=== PATIENT | male | born 1995 ===

== ENCOUNTER → 2020-07-30 | Outpatient (CLI) | payer OTHER ==
[2020-07-30 22:52] LABS: Basophils # (A) 0.04 X 10*3/uL (0.00-0.10); Basophils % (A) 0.5 %; Eosinophils # (A) 0.05 X 10*3/uL (0.04-0.35); Eosinophils % (A) 0.7 %; HCT 47.5 % (39.6-50.0); Lymphocytes # (A) 1.85 X 10*3/uL (0.90-5.00); Lymphocytes % (A) 25.3 %; MCH 30.1 pg (27.0-32.0); MCHC 33.7 g/dL (32.0-37.0); MCV 89.5 fL (80.0-97.0); Mean Platelet Volume 10.6 fL (9.5-12.2); Monocytes # (A) 0.41 X 10*3/uL (0.20-1.00); Monocytes % (A) 5.6 %; Neutrophils # (A) 4.89 X 10*3/uL (1.80-7.70); Neutrophils % (A) 66.9 %; Platelet Count 268 X 10*3/uL (140-440); RBC 5.31 X 10*6/uL (4.40-5.60); RDW 11.7 % (11.5-14.5); WBC 7.31 X 10*3/uL (4.50-10.00)
[2020-07-31 01:48] LABS: African American GFR (CKD) 106.8 (60.0-200.0); Albumin 4.9 g/dL (3.80-4.90); Albumin/Globulin Ratio 2.04 (1.60-3.17); Anion Gap 9.8 mmol/L (4.00-12.00); BUN/Creat Ratio 18.18 Ratio (12.00-20.00); Calcium 9.4 mg/dL (8.7-10.3); Carbon Dioxide 25.2 mmol/L (21.6-31.8); Globulin 2.4 g/dL (1.6-3.3); Non-African American GFR(CKD) 92.2 (60.0-200.0); Potassium 4.4 mmol/L (3.5-5.5); Total Bilirubin 0.7 mg/dL (0.3-1.2); Total Protein 7.3 g/dL (6.2-8.2)
== END | disposition home or self-care (01) ==
LOC: LABWHC1 13:17
PROVIDERS: ATTEND Nurse Practitioner Acute Care
DX: E55.9 Vitamin D deficiency, unspecified (principal); R56.9 Unspecified convulsions; Z51.81 Encounter for therapeutic drug level monitoring
CPT/HCPCS: 36415; 80053; 82306; 82607; 84207; 85025

== ENCOUNTER 2021-10-16 14:20 | Emergency (ER) | payer OTHER ==
[2021-10-16 14:23] VITALS: RESP 20; TEMP 98.3
--- NOTE | 2021-10-16 16:19 | XR ---
Left knee, left femur and left ankle HISTORY: Pain 3 views the left knee, frontal and lateral views the left femur on 4 images, 3 views left ankle Bone mineralization, joint spaces and alignment are maintained within the left ankle, left femur, lef t knee IMPRESSION: Normal left femur, left knee, left ankle
--- NOTE | 2021-10-16 16:34 | ED ---
Extremity Problem HPI - General Chief complaint: Extremity Problem,Nontraumatic Stated complaint: L leg pain Time Seen by Provider: 10/16/21 15:05 Source: patient Mode of arrival: ambulatory Limitations: no limitations - History of Present Illness Initial comments: Patient is a 25-year-old male presenting with chief complaint of left leg pain. Patient states that the pain began approximately a week ago after a session at the gym. Pain began localized around the knee. Patient states that the pain moves around between the lower legs, the upper leg, and the general knee area. Patient states that the pain is worse upon waking up in the morning, and after some activity and movement it decreases. Patient states that he drinks a liter of water a day and has been taking Tylenol for pain control. He states he has full sensation and range of motion. He denies history of diabetes, right leg pain, back pain, saddle paresthesia loss of bowel or bladder control, numbness, tingling, radiation of pain down the leg, acute trauma or injury. - Related Data Home Medications Medication Instructions Recorded Confirmed levETIRAcetam [Keppra] 750 mg PO BID 10/16/21 10/16/21 Previous Rx's Medication Instructions Recorded Cyclobenzaprine [Flexeril] 10 mg PO TID PRN #20 tab 10/16/21 Allergies Allergy/AdvReac Type Severity Reaction Status Date / Time No Known Allergies Allergy Verified 10/16/21 16:40 Review of Systems ROS Statement: Those systems with pertinent positive or pertinent negative responses have been documented in the HPI. ROS Other: All systems not noted in ROS Statement are negative. Past Medical History Past Medical History: Seizure Disorder History of Any Multi-Drug Resistant Organisms: None Reported Past Surgical History: No Surgical Hx Reported Past Psychological History: No Psychological Hx Reported Smoking Status: Never smoker Past Alcohol Use History: None Reported Past Drug Use History: None Reported - Past Family History Father History Unknown: Yes Family Medical History: Cancer, Hypertension General Exam Limitations: no limitations General appearance: alert, in no apparent distress Head exam: Present: atraumatic, normocephalic, normal inspection Eye exam: Present: normal appearance, EOMI. Absent: scleral icterus Neck exam: Present: normal inspection Extremities exam: Present: normal inspection, full ROM, normal capillary refill, other (Tibial and pedal pulses palpated, skin is normal color, warm to touch, and sensation is intact). Absent: tenderness, pedal edema, joint swelling, calf tenderness Neurological exam: Present: alert, oriented X3, CN II-XII intact Psychiatric exam: Present: normal affect, normal mood Skin exam: Present: warm, dry, intact, normal color. Absent: rash Course Vital Signs 10/16/21 14:21 Temperature 98.3 F Pulse Rate 93 Respiratory 20 Rate Blood Pressure 141/85 O2 Sat by Pulse 96 Oximetry Medical Decision Making - Medical Decision Making Patient is a 25-year-old male presenting with chief complaint of left leg pain. Patient states that the pain travels and is never localized only one area. It is worse in the morning and gets better with activity. Patient recently started more active lifestyle and going to the gym. On exam there is full range of motion and sensation is intact. Pulses are palpated. The skin is warm, dry, normal color. There is no tenderness on palpation anywhere along the left leg. X-rays are negative for fracture or dislocation. Educated the patient that this is likely due to cramping or spasming. I provided him with a prescription for cyclobenzaprine 10 mg up to 3 times a day as needed. I informed him that this medication may make him drowsy, and to not take before driving or operating heavy machinery. I encouraged him to continue with his new active lifestyle and stay hydrated throughout the day. Follow-up with PCP this week. Report back to ER with any worsening symptoms. Educated the patient on return parameters and answered all questions. He conveyed verbal understanding and agreed to the plan. - Radiology Data Radiology results: report reviewed Interpreted by me: X-ray of the knee, femur, and ankle: Normal left femur, left knee, left ankle Disposition Clinical Impression: Leg cramps Disposition: HOME SELF-CARE Condition: Good Instructions (If sedation given, give patient instructions): Leg Cramps (ED), Leg Pain (ED) Additional Instructions: Follow-up with primary care provider this week. Take medication as prescribed. Continue [place] and active lifestyle and stay well-hydrated throughout the day. Report back to ER if any worsening symptoms, including but not limited to loss of range of motion, bluish discoloration of the extremity, foot cold to the touch, pain with activity. Prescriptions: Cyclobenzaprine [Flexeril] 10 mg PO TID PRN #20 tab PRN Reason: Muscle Spasm Is patient prescribed a controlled substance at d/c from ED?: No Referrals: None,Stated [Primary Care Provider] - 10/23/21 Time of Disposition: 16:34
[2021-10-16 17:35] VITALS: BP 132/82; PULSE 88
== END 2021-10-16 17:29 | disposition home or self-care (01) ==
LOC: EC 14:20
DX: R25.2 Cramp and spasm (principal); G43.909 Migraine, unspecified, not intractable, without status migrainosus
CPT/HCPCS: 99283

== ENCOUNTER 2022-07-19 12:17 | Emergency (ER) | payer OTHER ==
--- NOTE | 2022-07-19 13:40 | XR ---
EXAMINATION TYPE: XR lumbosacral spine min 4V DATE OF EXAM: 07/19/2022 1:34 PM INDICATION: Patient age:Male; 26 years old; Reason for study: pain; PHH. COMPARISON: None TECHNIQUE: AP, lateral, bilateral oblique, and L5-S1 Spot lateral projections performed. FINDINGS: There are 5 lumbar type vertebral bodies identified. No evidence of any acute osseous patho logy. No evidence of loss of vertebral body height is seen. No disc space narrowing identified. Ther e is normal alignment of the lumbar vertebral bodies. IMPRESSION: No acute process.
[2022-07-19] MEDS ORDERED: ACET/COD 300 MG/30 MG STARTER PACK 6 TAB BTL PO STA (13:58)
--- NOTE | 2022-07-19 13:58 | ED ---
Back Pain HPI - General Chief Complaint: Back Pain/Injury Stated Complaint: Left sciatic pain Time Seen by Provider: 07/19/22 12:57 Source: patient, RN notes reviewed Mode of arrival: ambulatory Limitations: no limitations - History of Present Illness Initial Comments: 26-year-old male presents emergency Department chief complaint of back pain, left leg pain. Patient states that he has dealt with some issues of his back for but states this has been present for 3 weeks. Patient states his pain, occasional numbness down his left leg. Patient denies any bowel, bladder incontinence or retention of saddle anesthesias. Patient states that it is worse with movement states it feels like it starts the base of his back and rates down his left leg in the posterior aspect. Patient offers no other associated complaints denies any weakness denies any difficulty and bleeding. - Related Data Home Medications Medication Instructions Recorded Confirmed levETIRAcetam [Keppra] 750 mg PO BID 10/16/21 10/16/21 Previous Rx's Medication Instructions Recorded Cyclobenzaprine [Flexeril] 10 mg PO TID PRN #20 tab 10/16/21 Cyclobenzaprine [Flexeril] 10 mg PO TID PRN #15 tab 07/19/22 Ibuprofen [Motrin] 600 mg PO Q8HR PRN #20 tab 07/19/22 predniSONE 50 mg PO DAILY #5 tab 07/19/22 Allergies Allergy/AdvReac Type Severity Reaction Status Date / Time No Known Allergies Allergy Verified 10/16/21 16:40 Review of Systems ROS Statement: Those systems with pertinent positive or pertinent negative responses have been documented in the HPI. ROS Other: All systems not noted in ROS Statement are negative. Past Medical History Past Medical History: Seizure Disorder History of Any Multi-Drug Resistant Organisms: None Reported Past Surgical History: No Surgical Hx Reported Past Psychological History: No Psychological Hx Reported Smoking Status: Never smoker Past Alcohol Use History: None Reported Past Drug Use History: None Reported - Past Family History Father History Unknown: Yes Family Medical History: Cancer, Hypertension General Exam Limitations: no limitations General appearance: alert, in no apparent distress Head exam: Present: atraumatic, normocephalic, normal inspection Eye exam: Present: normal appearance, PERRL, EOMI. Absent: scleral icterus, conjunctival injection, periorbital swelling ENT exam: Present: normal exam, normal oropharynx, mucous membranes moist Neck exam: Present: normal inspection, full ROM. Absent: tenderness, meningismus, lymphadenopathy Respiratory exam: Present: normal lung sounds bilaterally. Absent: respiratory distress, wheezes, rales, rhonchi, stridor Cardiovascular Exam: Present: regular rate, normal rhythm, normal heart sounds. Absent: systolic murmur, diastolic murmur, rubs, gallop, clicks GI/Abdominal exam: Present: soft, normal bowel sounds. Absent: distended, tenderness, guarding, rebound, rigid Extremities exam: Present: other (Pain with left straight leg raise, neurovascular intact no swelling no discoloration pulses are equal bilaterally) Back exam: Present: full ROM (Pain with range of motion), tenderness, paraspinal tenderness, vertebral tenderness (Lumbar) Neurological exam: Present: reflexes normal. Absent: motor sensory deficit Course Vital Signs 07/19/22 12:43 Temperature 98 F Pulse Rate 95 Respiratory 16 Rate Blood Pressure 170/90 O2 Sat by Pulse 96 Oximetry Medical Decision Making - Medical Decision Making Was pt. sent in by a medical professional or institution (Dr. PA, [employer] DESIGN AND INSTALLATION TECHNICIAN, urgent care, hospital, or residential...) When possible be specific @ -No Did you speak to anyone other than the patient for history (EMS, parent, family, police, friend...)? What history was obtained from this source @ -No Did you review nursing and triage notes (agree or disagree)? Why? @ -I reviewed and agree with nursing and triage notes Were old charts reviewed (outside hosp., previous admission, EMS record, old EKG, old radiological studies, urgent care reports/EKG's, residential records)? Report findings @ -No old charts were reviewed Differential Diagnosis (chest pain, altered mental status, abdominal pain women, abdominal pain men, vaginal bleeding, weakness, fever, dyspnea, syncope, headache, dizziness, GI bleed, back pain, seizure, CVA, palpatations, mental health)? @ -Lumbar radiculopathy, lumbar fracture, herniated disc, bulging disc, this list is not conclusive. EKG interpreted by me (3pts min.). @ -None X-rays interpreted by me (1pt min.). @ -X-ray of the lumbar spine shows no acute osseous abnormality or acute process. CT interpreted by me (1pt min.). @ -None done U/S interpreted by me (1pt. min.). @ -None done What testing was considered but not performed or refused? (CT, X-rays, U/S, labs)? Why? @ -Considered MRI though this will be completed outpatient as he has normal x- ray. In no red flag symptoms What meds were considered but not given or refused? Why? @ -None Did you discuss the management of the patient with other professionals (professionals i.e. DrMoni, PA, PV DESIGN AND INSTALLATION TECHNICIAN, lab, RT, psych nurse, public health social worker, solid tire finisher, teacher, public service officer, skilled nursing case manager)? Give summary @ -No Was smoking cessation discussed for >3mins.? @ -No Was critical care preformed (if so, how long)? @ -No Were there social determinants of health that impacted care today? How? (Homelessness, low income, unemployed, alcoholism, drug addiction, transportation, low edu. Level, literacy, decrease access to med. care, fci, rehab)? @ -No Was there de-escalation of care discussed even if they declined (Discuss DNR or withdrawal of care, Hospice)? DNR status @ -No What co-morbidities impacted this encounter? (DM, HTN, Smoking, COPD, CAD, Cancer, CVA, ARF, Chemo, Hep., AIDS, mental health diagnosis, sleep apnea, morbid obesity)? @ -None Was patient admitted / discharged? Hospital course, mention meds given and route, prescriptions, significant lab abnormalities, going to OR and other pertinent info. @ -Discharge patient has lumbar to The symptoms will be started on prednisone advised to follow-up PCP or on-call orthopedic surgery return parameters were discussed. Undiagnosed new problem with uncertain prognosis? @ -No Drug Therapy requiring intensive monitoring for toxicity (Heparin, Nitro, Insulin, Cardizem)? @ -No Were any procedures done? @ -No Diagnosis/symptom? @ -Lumbar radiculopathy Acute, or Chronic, or Acute on Chronic? @ -Acute Uncomplicated (without systemic symptoms) or Complicated (systemic symptoms)? @ -Uncomplicated Side effects of treatment? @ -No Exacerbation, Progression, or Severe Exacerbation? @ -No Poses a threat to life or bodily function? How? (Chest pain, [place], [place], pneumonia, PE, COPD, DKA, ARF, appy, cholecystitis, CVA, Diverticulitis, Homicidal, Suicidal, threat to staff... and all critical care pts) @ -No Disposition Clinical Impression: Lumbar radiculopathy Disposition: HOME SELF-CARE Condition: Stable Instructions (If sedation given, give patient instructions): Acute Low Back Pa in (ED) Additional Instructions: Please return to the Emergency Department if symptoms worsen or any other concerns. Prescriptions: Cyclobenzaprine [Flexeril] 10 mg PO TID PRN #15 tab PRN Reason: Muscle Spasm Ibuprofen [Motrin] 600 mg PO Q8HR PRN #20 tab PRN Reason: Pain predniSONE 50 mg PO DAILY #5 tab Is patient prescribed a controlled substance at d/c from ED?: No Referrals: None,Stated [Primary Care Provider] - 1-2 days Marquise Means DO [Doctor of Osteopathic Medicine] - 1-2 days Time of Disposition: 13:58
[2022-07-19 14:09] VITALS: BP 138/91; PULSE 82; RESP 17; TEMP 97.9
== END 2022-07-19 14:09 | disposition home or self-care (01) ==
LOC: EC 12:17
DX: M54.16 Radiculopathy, lumbar region (principal)
CPT/HCPCS: 72110; 99283